=== PATIENT | female | born 1980 | race Caucasian/White ===

== ENCOUNTER 2021-04-13 12:14 | Emergency (ER) | payer OTHER ==
[~2021-04-13] VITALS: Ht 167.6 cm; Wt 68.0 kg
[2021-04-13 13:02] VITALS: BP_SYST 140
--- NOTE | 2021-04-13 13:10 | NUR ---
DR LEACH AT BEDSIDE
--- NOTE | 2021-04-13 13:23 | NUR ---
AMBULATES TO X RAY
[2021-04-13 14:07] VITALS: BP_SYST 137
--- NOTE | 2021-04-13 14:08 | NUR ---
Patient given written and verbal discharge instructions and verbalizes understanding. ER MD discussed with patient the results and treatment provided. Patient in stable condition. ID arm band removed. Patient educated on pain management and to follow up with PMD. Pain Scale 1. Opportunity for questions provided and answered. Medication side effect fact sheet provided.
== END 2021-04-13 14:06 | disposition home or self-care (01) ==
LOC: SED 12:14
DX: S46.912A Strain of unspecified muscle, fascia and tendon at shoulder and upper arm level, left arm, initial encounter (principal); V49.49XA Driver injured in collision with other motor vehicles in traffic accident, initial encounter; Y93.89 Activity, other specified; Y92.89 Other specified places as the place of occurrence of the external cause; Y99.8 Other external cause status
CPT/HCPCS: 73030; 99283